=== PATIENT | female | born 1990 | race African-American/Black ===

== ENCOUNTER 2016-12-06 06:58 | Inpatient (IN) | payer OTHER ==
[2016-12-06] MEDS ORDERED: LACTATED RINGERS 1,000 ML ONE (06:59)
[2016-12-06] MEDS ORDERED: PITOCin/NS 20 UNIT/1000ML DRIP 20,000 MILLIUNITS/1,000 ML BAG IV ONE (06:59)
--- NOTE | 2016-12-06 07:23 | History and Physical Report ---
History of Present Illness Date of examination: 12/06/16 Date of admission: 12/06/16 07:01 Chief complaint: Labor History of present illness: Pt is a 26yo AF EDC 12/11/16; EGA 39 2/7 weeks presents to L&D complaining of RUC's q 3-4 mins. She received late care in [place] at 29 weeks. course has been unremarkable. records are available, but no labs recorded, including GBS. Past History Past Medical History: no pertinent history Past Surgical History: no surgical history Family/Genetic History: none Social history: no significant social history - Obstetrical History Expected Date of Delivery: 12/11/16 Actual Gestation: 39 Week(s) 2 Day(s) : 1 Medications and Allergies Allergies Allergy/AdvReac Type Severity Reaction Status Date / Time No Known Allergies Allergy Verified 12/06/16 07:26 Home Medications Medication Instructions Recorded Confirmed Last Taken Type No Known Home Medications [No 12/06/16 12/06/16 Unknown History Reported Home Medications] Review of Systems All systems: negative - Vital Signs Vital signs: Vital Signs Pulse Pulse Ox 87 98 12/06/16 07:03 12/06/16 07:03 Temp Pulse Resp BP Pulse Ox 88 97 12/06/16 07:13 12/06/16 07:13 - Physical Exam Breasts: Positive: deferred Cardiovascular: Regular rate Lungs: Positive: Clear to auscultation Abdomen: Positive: normal appearance Genitourinary (Female): Positive: normal external genitalia Vagina: Positive: normal moisture Uterus: Positive: enlarged Extremities: Positive: normal - Obstetrical FHR: category 1 Uterine Contraction Monitor Mode: External Cervical Dilatation: 10 Cervical Effacement Percentage: 100 station: 0 Uterine Contraction Pattern: Regular Uterine Tone Measurement Phase: Contraction Uterine Contraction Intensity: Strong/Firm Results Result Diagrams: 12/06/16 08:05 All other labs normal. Assessment and Plan - Patient Problems (1) 39 weeks gestation of Onset Date: 12/06/16 Current Visit: Yes Status: Acute Plan to address problem: A: IUP @ 39 2/7 weeks in labor Limited care Unknown GBS P: Admit to L&D for expectant vaginal delivery Obtain labs including UDS IV Ampicillin
[2016-12-06] MEDS ORDERED: STADOL IV PRN (07:30)
[2016-12-06] MEDS ORDERED: POLYCILLIN/NS 2 GM/100 ML 2 GM/100 ML BAG IV ONE (07:30)
[2016-12-06] MEDS ORDERED: XYLOCAINE 2% INFILTRATI ONE ×2 (07:42→08:00)
[2016-12-06] MEDS ORDERED: SUBLIMAZE IV PRN (08:00)
[2016-12-06] MEDS ORDERED: ePHEDrine SULFATE IV PRN (08:00)
[2016-12-06] MEDS ORDERED: PITOCin/NS 30 UNIT/500ML 30 UNITS/500 ML BAG IV SCH (08:00)
[2016-12-06] MEDS ORDERED: LACTATED RINGERS 1,000 ML IV SCH (08:00)
[2016-12-06] MEDS ORDERED: BRETHINE SUB-Q PRN (08:00)
[2016-12-06] MEDS ORDERED: BRETHINE IVP PRN (08:00)
[2016-12-06] MEDS ORDERED: MINERAL OIL PO PRN (08:00)
[2016-12-06] MEDS ORDERED: PITOCin/NS 20 UNIT/1000ML DRIP 20 UNITS/1,000 ML BAG IV SCH ×2 (08:00→11:00)
--- NOTE | 2016-12-06 08:09 | Procedure Note ---
OB Delivery Note - Delivery Date of Delivery: 12/06/16 Surgeon: KEVIN HU Estimated blood loss: 300cc - Vaginal Delivery presentation: vertex Delivery position: OA Intrapartum events: precipitous labor- <3hr Delivery induction: none Delivery augmentation: rupture of membranes Delivery monitor: external FHT, external uterine Route of delivery: Delivery placenta: spontaneous Delivery cord: 3 umbilical vessels Episiotomy: none Delivery laceration: 2nd degree (perineal) Delivery repair: vicryl Anesthesia: local - A at 1 minute: 8 at 5 minutes: 9 Infant Gender: Male (2553gms)
[2016-12-06 08:30] LABS: Basophils % (Auto) 0.2 % (0.0-1.8); Eosinophils % (Auto) 0.1 % (0.0-4.3); Hematocrit 42.2 % (30.3-42.9); Hemoglobin 13.7 gm/dl (10.1-14.3); Mean Corpuscular HGB Conc 32 % (30-34); Mean Corpuscular Hemoglobin 30 pg (28-32); Mean Corpuscular Volume 93 fl (79-97); Platelet Count 186 K/mm3 (140-440); Red Blood Count 4.52 M/mm3 (3.65-5.03); Red Cell Distribution Width 14.6 % (13.2-15.2); White Blood Count 15.3 K/mm3 (4.5-11.0)
[2016-12-06] MEDS ORDERED: POLYCILLIN/NS 1 GM/50 ML 1 GM/50 ML BAG IV SCH (10:00)
[2016-12-06] MEDS ORDERED: LANSINOH TP PRN (10:35)
[2016-12-06] MEDS ORDERED: ZOFRAN IV PRN (10:35)
[2016-12-06] MEDS ORDERED: DULCOLAX PR PRN (10:35)
[2016-12-06] MEDS ORDERED: BENADRYL PO PRN (10:35)
[2016-12-06] MEDS ORDERED: PHENERGAN PR PRN (10:35)
[2016-12-06] MEDS ORDERED: PHENERGAN PO PRN (10:35)
[2016-12-06] MEDS ORDERED: NORCO 5/325 PO PRN (10:35)
[2016-12-06] MEDS ORDERED: DERMOPLAST TP PRN (10:35)
[2016-12-06] MEDS ORDERED: MILK OF MAGNESIA PO PRN (10:35)
[2016-12-06] MEDS ORDERED: TUCKS PAD TP PRN (10:35)
[2016-12-06] MEDS ORDERED: TYLENOL PO PRN (10:35)
[2016-12-06] MEDS ORDERED: SODIUM CHLORIDE FLUSH SYRINGE 10 ML IV NR (11:00)
[2016-12-06 11:50] LABS: HIV-1 Antigen p24 Non React (Non React); HIVR-1/2 Ab Non React (Non React)
[2016-12-06 14:22] LABS: Urine Drugs of Abuse Note Disclamer
[2016-12-06 14:47] LABS: Bilirubin,Urine NEG (Negative); Blood,Urine LG (Negative); Ketones,Urine NEG (Negative); Leukocyte Esterase,Urine TR (Negative); Nitrite,Urine NEG (Negative); Urobilinogen,Urine < 2.0 mg/dL (<2.0)
[2016-12-06 14:49] LABS: RBC,Urine > 182.0 /HPF (0.0-6.0); WBC,Urine > 182.0 /HPF (0.0-6.0)
[2016-12-06] MEDS: MOTRIN PO SCH ×2 (16:29→23:05)
[2016-12-06] MEDS: SENOKOT S PO SCH (23:00)
[2016-12-06 23:10] LABS: Hematocrit 36.2 % (30.3-42.9)
--- NOTE | 2016-12-07 07:53 | Progress Note ---
Assessment and Plan PPD# 1 s/p -Doing well P: -Continue routine care -Anticipate discharge in 24-48 hours - Patient Problems (1) (normal spontaneous vaginal delivery) Current Visit: Yes Status: Acute Subjective - Subjective Date of service: 12/07/16 Principal diagnosis: PPD# 1 Interval history: The patient seen and examined, stable doing well. No issues Patient reports: appetite normal, voiding normally, pain well controlled, ambulating normally, no dizzy ambulation, no nauseated : doing well Objective - Vital Signs Latest vital signs: Vital Signs Temp Pulse Pulse Resp BP BP Pulse Ox 12/07/16 00:00 98.0 F 89 20 97/63 12/06/16 15:35 99.4 F 93 H 20 99/62 12/06/16 12:22 98.2 F 80 20 95/62 12/06/16 09:15 99.3 F 72 18 104/65 12/06/16 09:04 83 106/57 12/06/16 08:50 93 H 114/54 12/06/16 08:34 96 H 110/58 12/06/16 08:26 97.9 F 14 12/06/16 08:19 83 108/61 12/06/16 08:05 80 104/64 12/06/16 07:53 87 94 Intake and Output 12/06/16 12/07/16 12/07/16 22:59 06:59 14:59 Intake Total 600 Output Total 700 Balance -100 Intake: Oral 600 Output: Urine 700 Void 700 Other: Total, Intake Amount 240 Total, Output Amount 300 # Voids Void 1 - Exam Abdomen: Present: normal appearance, soft, normal bowel sounds. Absent: distention, tenderness, guarding Uterus: Present: fundal height below umbilicus. Absent: tenderness Extremities: Present: normal - Labs Labs: Abnormal lab results 12/06/16 12/06/16 Range/Units 08:05 14:00 WBC 15.3 H (4.5-11.0) K/mm3 Lymph % (Auto) 12.3 L (13.4-35.0) % Seg Neutrophils % 84.0 H (40.0-70.0) % Seg Neutrophils # 12.8 H (1.8-7.7) K/mm3 Urine WBC (Auto) > 182.0 H (0.0-6.0) /HPF
--- NOTE | 2016-12-07 07:56 | Discharge Summary ---
Providers - Providers Date of Admission: 12/06/16 07:01 Date of discharge: 12/08/16 Attending physician: KEVIN HU 12/06/16 10:34 Consult to Case Management [CONS] Routine Services Needed at Discharge: Personal Vehicle Advisor Notified:: no Phone number called:: [phone] Was contact made?: No Additional Physician Instructions: no pnc Primary care physician: KEVIN HU Hospitalization Reason for admission: active labor Delivery: Episiotomy: none Laceration: 2nd degree Incision: normal, dry Other procedures: none complications: none Discharge diagnosis: IUP at term delivered baby: male Hospital course: Uncomplicated hospital course Condition at discharge: Good Disposition: DISCHARGED TO HOME OR SELFCARE - Discharge Diagnoses (1) (normal spontaneous vaginal delivery) Status: Acute Plan - Provider Discharge Summary Activity: no sex for 6 weeks, no heavy lifting 4 weeks, no strenuous exercise Diet: routine Additional instructions: [] Smoking cessation referral if applicable(refer to patient education folder for contact #) [] Refer to [facility] Booklet Call your doctor immediately for: * Fever > 100.5 * Heavy vaginal bleeding ( >1 pad per hour) * Severe persistent headache * Shortness of breath * Reddened, hot, painful area to leg or breast * Drainage or odor from incision. * Keep incision clean and dry at all times and follow doctor's instructions regarding bathing/showering - Follow up plan Follow up: KEVIN HU MD [Primary Care Provider] - 6 Weeks
[2016-12-07] MEDS ORDERED: PRENATAL VITAMIN PO SCH (10:00)
[2016-12-07] MEDS ORDERED: BOOSTRIX IM ONE (10:35)
[2016-12-07] MEDS ORDERED: M-M-R II VACCINE SUB-Q ONE (10:35)
[2016-12-07] MEDS: COLACE PO SCH ×2 (12:11→22:42)
[2016-12-07] MEDS: FEOSOL PO SCH ×2 (12:12→22:41)
[2016-12-07] MEDS: MOTRIN PO SCH (12:12)
[2016-12-07] MEDS: SENOKOT S PO SCH (12:15)
[2016-12-08 10:43] VITALS: BP 107/62
== END 2016-12-08 12:10 | disposition home or self-care (01) | DRG 775 ==
LOC: TRG 06:58 → LD 07:01 → OBSVTOIN 07:01 → OB 09:30
PROVIDERS: ADMIT Obstetrics & Gynecology; ATTEND Obstetrics & Gynecology
PROC: 10E0XZZ Delivery of Products of Conception, External Approach (ICD-10-PCS; principal; 2016-12-06)
PROC: 0KQM0ZZ Repair Perineum Muscle, Open Approach (ICD-10-PCS; 2016-12-06)
PROC: 3E0R3BZ Introduction of Anesthetic Agent into Spinal Canal, Percutaneous Approach (ICD-10-PCS; 2016-12-06)
PROC: 00HU33Z Insertion of Infusion Device into Spinal Canal, Percutaneous Approach (ICD-10-PCS; 2016-12-06)
DX: O62.3 Precipitate labor (principal); O70.1 Second degree perineal laceration during delivery; O09.33 Supervision of pregnancy with insufficient antenatal care, third trimester; Z3A.39 39 weeks gestation of pregnancy; Z37.0 Single live birth
CPT/HCPCS: 36415; 80307; 81001; 85014; 85018; 85025; 86592; 86706; 86762; 86803; 86850; 86900; 86901; 87806; 99211; A6250; G0463; J2590; J7120